=== PATIENT | male | born 1970 | race Caucasian/White ===

== ENCOUNTER → 2021-03-06 15:14 | Outpatient (CLI) | payer SELFPAY | PROVIDERS: Referring Provider Dermatology; Visit Provider Dermatology | DX: L02.211 Cutaneous abscess of abdominal wall (principal) | CPT/HCPCS: 87070; 87186; 87205 ==

== ENCOUNTER 2021-05-19 13:00 | Emergency (ER) | payer SELFPAY ==
[2021-05-19 13:00] VITALS: BP 161/105; PULSE 112; RESP 18; TEMP 36.6; O2SAT 97; BMI 29.2
--- NOTE | 2021-05-19 13:08 | EX.ED.UPPERE ---
HPI History of Present Illness Chief Complaint: Foreign Body Informant: patient Narrative Narrative: [id number] male presents puncture with a nail into his left hand. 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 Tetanus was recently due to injury to the same hand. Is currently on Bactrim. States having numbness on the ulnar aspect of his hand. No anticoagulation medications. Tetanus Immunization: <5 years [facility] Medical History Infected finger Home Medications sulfamethoxazole-trimethoprim 1 tab PO DAILY 05/19/21 [History Last Taken Unknown] Allergy/AdvReac Type Severity Reaction Status Date / Time No Known Allergies Allergy Verified 05/19/21 13:02 Social History Smoking Status: Current every day smoker tobacco type: cigarettes ROS ROS ED Constitutional Constitutional ED: Denies chills, fever(s) or sweats Eyes Eyes: Denies change in vision ENT ENT ED: Denies dysphagia or sore throat Cardiovascular Cardiovascular: Denies chest pain, leg edema, palpitations or racing heartbeat Respiratory/Chest Respiratory/Chest: Denies cough, dyspnea or dyspnea on exertion Gastrointestinal Gastrointestinal: Denies abdominal pain, diarrhea, nausea or vomiting Genitourinary Genitourinary ED: Denies dysuria, hematuria or urinary frequency Musculoskeletal Musculoskeletal: Denies back pain, extremity pain or neck pain Integumentary Reports other Details: Left hand wound. ; Denies rash or wounds Neurologic Neurologic: Denies headache(s), paresthesias or weakness EXAM Physical Exam Const Vital Signs: 05/19/21 13:00 Temperature 97.8 F Temperature Source Temporal Pulse Rate 112 H Respiratory Rate 18 Blood Pressure 161/105 H Blood Pressure Mean 123 Pulse Ox 97 Oxygen Delivery Method Room Air Positive well nourished and well developed General Appearance ED: well developed and NAD HEENT Reports moist mucous membranes normocephalic and atraumatic Eyes PERRL, EOMs intact bilaterally and conjunctivae normal General Eye ED: Yes normal appearance of both eyes Neck no lymphadenopathy and supple General: Negative for tenderness Chest Wall Chest: Negative for tenderness Resp normal respiratory effort and normal air movement Effort and Inspection: symmetric chest movement; Negative for respiratory distress Cardio regular rate, regular rhythm and no murmurs Peripheral Pulses: pulses 2+ throughout GI normal to inspection, nondistended, normoactive bowel sounds and non-tender Palpation: Negative for guarding or rebound tenderness present Back/Spine no CVA tenderness and no thoracic nor lumbar tenderness Extremity Extremity Narrative: Left hand: There was a nail puncture right at the hyperthenar section of the hand. There was attached small wood piece with small nails on the wood piece itself. There was full range of motion of the fifth digit with no movement of the nail. There was movement wrist flexion extension without any pain. General Extremety ED: Negative for edema or tenderness General Extremity: Negative for edema Neuro oriented x3 and no sensory deficits noted Sensorium / Orientation: awake and alert Skin no rashes or lesions noted and no wounds Skin Narrative: See above MDM MDM MDM Narrative Medical decision making narrative: X-ray was reviewed bedside upon being taken nail puncture noted did not appear to puncture into the bone. Extra small nails were attached to the wood on the image studies. And this did not penetrate patient's hand. Was given Motrin, bedside with plan for local injection after Betadine prep, however upon attempted injection patient states he just wanted the nail pulled out since it was not bent. Hemostats were placed on the base of the nail, traction obtain nail was removed in 1 piece. Patient currently on Bactrim, signs and symptoms of infections were discussed for return otherwise follow-up with his PCP. He did not want to place this as a Worker's Compensation injury. Procedure note: Verbal consent. Bedside, hand was placed in a flat position, Betadine prep around the nail, plan for injection of lidocaine 1%, however initial attempt he states discomfort and did not want to continue injection with numbing medicines. Hemostats were placed at the base of the nail traction with removal slight bleeding controlled with pressure. Copious flushing with mixed Betadine and normal saline. Dressing was placed by nursing. Patient tolerated procedure well. Discharge Plan Triage Chief Complaint: Foreign Body ED Provider: Miguel A Louis Dx/Rx/DC Orders Clinical Impression: Puncture wound of hand, left, Acute foreign body of left hand Instructions: ED Foreign Body Soft Tissue, ED Puncture Wound (General) Prescriptions: No Action sulfamethoxazole-trimethoprim 800-160 mg tablet 1 tab PO DAILY RF: 0 Primary Care Provider: Care Physician,No Primary Referrals: Care Physician,No Primary [Primary Care Provider] - Activity Restrictions/Additional Instructions: Finish your Bactrim. Follow up with your doctors. Disposition Disposition: Home, Self Care Discharge Date/Time: 05/19/21 13:38
--- NOTE | 2021-05-19 13:13 | RAD_ITS ---
STUDY: X-RAY - LEFT HAND REASON FOR EXAM: Nails in left palm. TECHNIQUE: 3 view(s) of the hand. COMPARISON: None. FINDINGS: Normal radiocarpal articulation. Normal distal radioulnar joint. Normal visualized carpal bones. Normal carpal articulations Normal carpometacarpal articulation of the thumb. Normal second through fifth carpometacarpal joints. Normal metacarpi. Normal metacarpophalangeal joint of the thumb. Normal interphalangeal joint of the thumb. Normal proximal and distal phalanges of the thumb. Normal metacarpophalangeal joints of the second through fifth fingers. Normal proximal and distal interphalangeal joints of the second through fifth fingers. Normal phalanges of the second through fifth fingers. There are nails at the palmar aspect of the proximal hand. RAD/Hand Min 3 Views IMPRESSION: Foreign bodies. Electronically Signed: Jared Francis MD at 13:57 EST ,
[2021-05-19] MEDS: Ibuprofen 600 MG Tablet PO (13:15)
[2021-05-19] MEDS: Lidocaine 1% (20 ml mdv) 20 ML Vial INFILT (13:16)
--- NOTE | 2021-05-19 13:38 | CM.ED ---
Social Work Consult: No Primary Care Physician (PCP). Referral source: Self referral Met with patient in room. Introduced self and clinical social worker role. Patient agreeable to speak with this clinical social worker. This clinical social worker noting that patient does not have a PCP or insurance, patient confirms both. 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 Patient agreeable to this clinical social worker providing patient with community resources for self-pay and how to get connected with a PCP. This clinical social worker provided [facility] as well as financial assistance programs. Patient denies other needs or concerns in the community. Patient thanked this clinical social worker for the information. No further services indicated. Alejandro GIORDANO, SADIE
== END 2021-05-19 13:38 | disposition home or self-care (01) ==
PROVIDERS: Emergency Provider Emergency Medicine; Visit Provider Emergency Medicine
DX: S61.442A Puncture wound with foreign body of left hand, initial encounter (principal); F17.210 Nicotine dependence, cigarettes, uncomplicated; Y99.0 Civilian activity done for income or pay; Y29.XXXA Contact with blunt object, undetermined intent, initial encounter
CPT/HCPCS: 73130; 99283

== ENCOUNTER 2024-02-08 14:49 | Emergency (ER) | payer MEDICAID, SELFPAY ==
[2024-02-08 14:50] VITALS: BP 174/92; PULSE 91; RESP 16; TEMP 36.6; O2SAT 99; BMI 26.3
--- NOTE | 2024-02-08 15:20 | EX.ED.VIS.EY ---
HPI History of Present Illness Chief Complaint: Eye Problem Detail of Chief Complaint: Foreign body left eye. Informant: patient Onset/Context/Timing Location: Left Eye Context: Sudden Onset Timing: Continuous Current Severity: Moderate Maximum Severity: Moderate Associated Symptoms Associated Symptoms - Eyes: Foreign body sensation, Pain and Photophobia Visual correction: None Narrative Narrative: Healthy 53-year-old male does not wear glasses or contacts. No prior history of surgery. Was a grinding a bolt working on his car and believes he got metal shavings in his eye occurred around 2 AM this morning. It is now more than 12 hours after that. Denies any other complaints. Said its painful. He has photophobia. Eyes watering. Prior similar symptoms: No Recent Illness/Hospitalization: No PFSH PFSH Medical History Infected finger Home Medications ?Medication ?Instructions ?Recorded ?Last Taken ?Type sulfamethoxazole 800 1 tab PO DAILY 05/19/21 Unknown History mg-trimethoprim 160 mg tablet Allergy/AdvReac Type Severity Reaction Status Date / Time No Known Allergies Allergy Verified 02/08/24 14:50 Social History Smoking Status: Current every day smoker tobacco type: cigarettes ROS ROS ED ROS Narrative Denies recent illness. Constitutional Constitutional ED: Denies chills or fever(s) Eyes Eyes: Denies blurry vision, change in vision or diplopia ENT ENT ED: Denies ear pain or rhinorrhea Cardiovascular Cardiovascular: Denies chest pain Respiratory/Chest Respiratory/Chest: Denies cough Gastrointestinal Gastrointestinal: Denies abdominal pain Genitourinary Genitourinary ED: Denies dysuria Musculoskeletal Musculoskeletal: Denies arthralgias Integumentary Denies abscess Neurologic Neurologic: Denies headache(s) Psychiatric Psychiatric: Denies anxiety or depression Endocrine Endocrinology: Denies polydipsia Hematologic/Lymphatic Hematologic/Lymphatic: Denies easy bleeding Allergic/Immunologic Allergic/Immunologic ED: Denies mouth swelling or tongue swelling EXAM Physical Exam Narrative Exam Narrative: Well-appearing 53-year-old male. Sitting upright in bed. Vital signs stable afebrile. H EENT exam pupils round reactive light extra motions are intact. There is no swelling of his upper or lower lid. His left eye is watering more. There is no discharge or pus. No periorbital swelling or redness. No preauricular lymphadenopathy. Pupils round reactive light. With the naked eye you can see has a metallic foreign body at both 3:00 on the cornea lateral to the pupil and again at 9:00 he has 2 different foreign bodies. Lungs clear. Heart regular rhythm. Abdomen soft. Moving all 4 extremities. Awake and alert. Const Vital Signs: 02/08/24 14:50 Temperature 98 F Temperature Source Temporal Pulse Rate 91 Respiratory Rate 16 Blood Pressure 174/92 H Blood Pressure Mean 119 Pulse Ox 99 Oxygen Delivery Method Room Air Positive well nourished and well developed; Negative for obese, cachectic, contractures or unkempt General Appearance ED: well developed and NAD; Negative for unkempt, cachectic or contractures Nutritional Appearance: Negative for cachectic or obese HEENT atraumatic; Negative for trauma or tenderness Eyes Eyes Narrative: Left eye, 2 foreign bodies, metallic at 3:00 and 9:00 on the cornea medial and lateral to the pupil. Watering. No discharge. No redness or proptosis. Both the upper and lower lids were everted and there were no foreign body seen there. Neck no lymphadenopathy, supple and no JVD General: Negative for tenderness Resp normal respiratory effort, no retractions, no use of accessory muscles and clear to auscultation bilaterally Cardio regular rate, regular rhythm, S1 normal heart sound, S2 normal heart sound and no murmurs GI non-tender, non-distended and no masses Auscultation: normoactive bowel sounds Palpation: soft Back/Spine no CVA tenderness General Back: Negative for CVA tenderness Extremity normal to inspection General Extremety ED: Negative for edema or other findings General Extremity: Negative for edema or other findings Neuro oriented x3, CN's II-XII intact bilaterally and moves all extremities Sensorium / Orientation: alert, oriented to person, oriented to place and oriented to time; Negative for orientation impaired or other Motor Exam: strength 5/5 throughout Psych Appearance: Negative for unkempt Mood & Affect: Negative for depressed, anxious or tearful Skin no wounds Lesions: no lesions Rashes: no rashes MDM MDM MDM Narrative Medical decision making narrative: 53-year-old male neither wears glasses nor contacts. No eye history of prior eye surgery. Foreign body left eye both 3:00 and 9:00. Tetracaine in the eye got immediate relief. Then fluorescein stain. Slit-lamp saw the same 2 foreign bodies. The left foreign body at 3:00 I was able to take off with a wet Q-tip. The right was more embedded I got a few pieces of it off but there is still a rust ring. Patient will follow-up with [facility] I have their physician on page to see if they want to see him first thing Saturday morning. He will be discharged home with tetracaine eyedrops. Based trace ophthalmic ointment. Use Tylenol Motrin for pain. Sunglasses prevent glare. Discharge Plan Triage Chief Complaint: Eye Problem ED Provider: Cisco Moses Dx/Rx/DC Orders Clinical Impression: Acute foreign body of cornea, Corneal rust ring of left eye Instructions: Foreign Object in the Cornea, ED Corneal Abrasion Prescriptions: No Action sulfamethoxazole-trimethoprim 800-160 mg tablet 1 tab PO DAILY Patient Comments: TAKE 1 TABLET BY MOUTH TWICE A DAY X7DAYS Primary Care Provider: Care Physician,No Primary Referrals: Kevin Grant MD [Med Staff - Active Staff] - As soon as possible (Call first thing Saturday to the [facility]. Call their office at 8 AM. They will get you in the morning to reevaluate your left eye get out the rest of the foreign body that is left at around 9:00 and reevaluate the 1 at 3:00.) Care Physician,No Primary [Primary Care Provider] - Activity Restrictions/Additional Instructions: Follow-up with the [facility] first thing Saturday home at 8 AM they will get you in that morning. Sunglasses to prevent glare. Do not rub your eyes. Use antibiotic twice a day to help lubricate the eye and prevent infection. Use the tetracaine eyedrops to help decrease the pain for the next 24 hours. After 24 hours stop using them because they can retard healing. Motrin and Tylenol for pain. Print Language: [place] Disposition Disposition: Home, Self Care
[2024-02-08] MEDS: Bacitracin/Polymin B Sulfate 3.5 GM OPTH.TUBE 1 APPLIC LEFT EYE (15:43)
--- NOTE | 2024-02-08 15:46 | ED.RN ---
Unable to scan fluocein strip and tetracaine drops, box and strip discarded. Both wer however administered by
== END 2024-02-08 15:48 | disposition home or self-care (01) ==
PROVIDERS: Emergency Provider Emergency Medicine; Visit Provider Emergency Medicine
DX: T15.02XA Foreign body in cornea, left eye, initial encounter (principal); H18.59 Other hereditary corneal dystrophies; F17.210 Nicotine dependence, cigarettes, uncomplicated; W44.8XXA Other foreign body entering into or through a natural orifice, initial encounter
CPT/HCPCS: 99282